=== PATIENT | female | born 1970 | race Asian ===

== ENCOUNTER 2017-08-04 20:16 | Emergency (ER) | payer SELFPAY ==
[2017-08-04 20:48] LABS: POC GLUCOSE 450 mg/dL (70-99)
[2017-08-04 21:08] LABS: ADD MAN DIFF? NO
[2017-08-04 21:11] LABS: BILIRUBIN,URINE NEGATIVE (NEG); CLARITY,URINE CLEAR; COLOR,URINE YELLOW; GLUCOSE,URINE >=1000 mg/dL (NEG); NITRITE,URINE NEGATIVE (NEG); PROTEIN,URINE 30 mg/dL (NEG-TRACE)
[2017-08-04 21:13] LABS: BASO % 0 % (0-3); EOS # 0.1 x10^3/uL (0.0-0.7); EOS % 1 % (0-3); HEMATOCRIT 40.6 % (36.0-47.0); HEMOGLOBIN 14.3 g/dL (12.0-15.5); LYMPH # 1.6 x10^3/uL (1.0-4.8); LYMPH % 19 % (24-48); MEAN CORPUSCULAR HEMOGLOBIN 33 pg (25-35); MEAN CORPUSCULAR HGB CONC 35 g/dL (31-37); MEAN CORPUSCULAR VOLUME 93 fL (79-100); MONO # 0.4 x10^3/uL (0.0-1.1); MONO % 5 % (0-9); NEUT # 6.2 x10^3uL (1.8-7.7); NEUT % 75 % (31-73); PLATELET COUNT 135 x10^3/uL (140-400); RED BLOOD COUNT 4.36 x10^6/uL (3.50-5.40); WHITE BLOOD COUNT 8.3 x10^3/uL (4.0-11.0)
[2017-08-04 21:28] LABS: ANION GAP 10 (6-14); BLOOD UREA NITROGEN 8 mg/dL (7-20); CALCIUM 8.7 mg/dL (8.5-10.1); CARBON DIOXIDE 25 mmol/L (21-32); CHLORIDE 93 mmol/L (98-107); CREATININE 0.9 mg/dL (0.6-1.0); POTASSIUM 3.6 mmol/L (3.5-5.1); SODIUM 128 mmol/L (136-145)
[2017-08-04 21:38] LABS: BACTERIA,URINE 0 /HPF (0-FEW); RBC,URINE 0 /HPF (0-2); SQUAMOUS EPITHELIAL CELL,UR MOD /LPF
[2017-08-04 21:40] LABS: GLUCOSE 511 mg/dL (70-99)
[2017-08-04] MEDS: metFORMIN 500 MG TABLET PO ×2 (22:32→22:44)
[2017-08-04] MEDS: NITROFURANTOIN MONOHYD/M-CRYST 100 MG CAPSULE. PO (22:44)
[2017-08-04] MEDS: INSULIN REGULAR 100 UNIT/ML 3ML VIAL. SQ (22:46)
== END 2017-08-04 22:52 | disposition home or self-care (01) ==
LOC: ER 20:16
DX: E11.65 Type 2 diabetes mellitus with hyperglycemia (principal)
CPT/HCPCS: 36415; 80048; 81001; 82962; 85025; 96372; 99284; J1815

== ENCOUNTER 2017-09-29 20:36 | Emergency (ER) | payer SELFPAY ==
[2017-09-29 23:46] LABS: POC GLUCOSE 439 mg/dL (70-99)
[2017-09-30] MEDS: INSULIN REGULAR 100 UNIT/ML 3ML VIAL. IV (00:05)
[2017-09-30] MEDS: IV NORMAL SALINE 1000ML BAG 1,000 ML IV ×2 (00:06→01:00)
[2017-09-30 01:45] LABS: POC GLUCOSE 278 mg/dL (70-99)
== END 2017-09-30 01:47 | disposition home or self-care (01) ==
LOC: ER 09-30 01:47
DX: E11.65 Type 2 diabetes mellitus with hyperglycemia (principal)
CPT/HCPCS: 82962; 96361; 96374; 99285; J1815; J7030

== ENCOUNTER → 2018-09-04 | Outpatient (CLI) | payer OTHER ==
[2017-09-29 23:00] VITALS: BP 110/80
[~2018-09-04] MED LIST: INSU100I17 SQ; INSU100V13 SQ; METF500T16 PO; NITR100C62 PO
--- NOTE | 2018-09-04 17:10 | KCIC ---
PA chest. HISTORY: Tuberculosis follow-up PA view was taken of the chest. There are bilateral diffuse mainly upper lobe infiltrates with definite interval change compared to the old study. An acute pneumonia is possible. TB can have this pattern. There is a probable cavitary lesion in the left apex. IMPRESSION: 1. Development of bilateral upper lobe infiltrates. 2. Cavitary lesion left apex, active TB is possible. Electronically signed by: Jarad Messina MD (09/04/2018 5:07 PM) [facility]
== END | disposition home or self-care (01) ==
LOC: KCIC 11:20
PROVIDERS: ATTEND Family Medicine
DX: Z09 Encounter for follow-up examination after completed treatment for conditions other than malignant neoplasm (principal); R91.8 Other nonspecific abnormal finding of lung field; R91.1 Solitary pulmonary nodule
CPT/HCPCS: 71045

== ENCOUNTER 2019-03-31 00:16 | Emergency (ER) | payer MEDICAID, OTHER ==
[2019-03-31 00:35] VITALS: BP 141/84
[2019-03-31] MEDS ORDERED: ACETAMINOPHEN 500 MG TABLET PO ONE (01:00)
[2019-03-31] MEDS ORDERED: IBUPROFEN 400 MG TABLET. PO ONE (01:00)
[2019-03-31] MEDS ORDERED: OSELTAMIVIR 75 MG CAPSULE PO ONE (01:00)
[2019-03-31] MEDS ORDERED: ONDANSETRON ODT 4 MG TAB.RAPDIS. PO ONE (01:00)
[2019-03-31 01:13] LABS: INFLUENZA A PATIENT NEGATIVE (NEGATIVE); INFLUENZA B PATIENT NEGATIVE (NEGATIVE)
[2019-03-31] MEDS ORDERED: OSEL75CA PO (01:13)
[2019-03-31] MEDS ORDERED: IBUP-1007 PO (01:13)
[2019-03-31] MEDS ORDERED: ACET325T9 PO (01:13)
--- NOTE | 2019-03-31 01:13 | PHYS DOC ---
Past Medical History Past Medical History: Diabetes-Type II Past Surgical History: No Surgical History Alcohol Use: None Drug Use: None Adult General Chief Complaint Chief Complaint: FLU SYMPTOM HPI HPI Patient is a 48 year old female who presents to the ED today with fever cough, nasal congestion, headache and generalized weakness since yesterday. Review of Systems Review of Systems Constitutional: Reports fevers, chills Eyes: Denies change in visual acuity, redness, or eye pain [] HENT: Denies nasal congestion or sore throat [] Respiratory: Reports cough, denies shortness of breath [] Cardiovascular: No additional information not addressed in HPI [] GI: Denies abdominal pain, nausea, vomiting, bloody stools or diarrhea [] : Denies dysuria or hematuria [] Musculoskeletal: Denies back pain or joint pain [] Integument: Denies rash or skin lesions [] Neurologic: Reports headache, denies focal weakness or sensory changes [] All other systems were reviewed and found to be within normal limits, except as documented in this note. Current Medications Current Medications Current Medications Medications (Trade) Dose Ordered Sig/Gonzalo Start Time Stop Time Status Last Admin Dose Admin Acetaminophen (Tylenol) 1,000 mg 1X ONCE 03/31/19 01:00 03/31/19 01:01 DC Ibuprofen (Motrin) 800 mg 1X ONCE 03/31/19 01:00 03/31/19 01:01 DC Ondansetron HCl (Zofran Odt) 4 mg 1X ONCE 03/31/19 01:00 03/31/19 01:01 DC Oseltamivir Phosphate (Tamiflu) 75 mg 1X ONCE 03/31/19 01:00 03/31/19 01:01 Cancel Allergies Allergies Allergies Coded Allergies Type Severity Reaction Last Updated Verified No Known Drug Allergies 05/20/15 No Physical Exam Physical Exam Constitutional: Well developed, well nourished, no acute distress, non-toxic appearance. [] HENT: Normocephalic, atraumatic, bilateral external ears normal, oropharynx moist, no oral exudates, nose normal. [] Eyes: PERRLA, EOMI, conjunctiva normal, no discharge. [] Neck: Normal range of motion, no tenderness, supple, no stridor. [] Cardiovascular:Heart rate regular rhythm, no murmur [] Lungs & Thorax: Bilateral breath sounds clear to auscultation [] Abdomen: Bowel sounds normal, soft, no tenderness, no masses, no pulsatile masses. [] Skin: Warm, dry, no erythema, no rash. [] Back: No tenderness, no CVA tenderness. [] Extremities: No tenderness, no cyanosis, no clubbing, ROM intact, no edema. [] Neurologic: Alert and oriented X 3, normal motor function, normal sensory function, no focal deficits noted. [] Psychologic: Affect normal, judgement normal, mood normal. [] Current Patient Data Vital Signs Vital Signs Date Time Temp Pulse Resp B/P (MAP) Pulse Ox O2 Delivery O2 Flow Rate FiO2 03/31/19 00:35 99.2 124 24 141/84 (103) 92 Room Air 99.2 EKG EKG [] Radiology/Procedures Radiology/Procedures [] Course & Med Decision Making Course & Med Decision Making Pertinent Labs and Imaging studies reviewed. (See chart for details) This is a 48-year-old female patient presenting to the ED today with flulike symptoms including headache, body aches, chills, fevers, weakness, symptoms beg an yesterday. Blood glucose in the ED is 289, history of diabetes type 2. Temperature 99.7. Patient was given Tylenol and Motrin on arrival to the ED. Discharged on Tamiflu. Instructed to rest and push fluids. Follow-up with primary care doctor in the course of this week. Dragon Disclaimer Dragon Disclaimer This electronic medical record was generated, in whole or in part, using a voice recognition dictation system. Departure Departure Impression: Primary Impression: Fever Additional Impressions: Cough URI (upper respiratory infection) Disposition: 01 HOME, SELF-CARE Condition: STABLE Referrals: SEGUNDO HARTLEY MD (PCP) follow up in the course of this week Patient Instructions: Cough, Adult, Fever, Adult, [id number], Upper Respiratory Infection, Adult, [id number] Additional Instructions: You were evaluated in the emergency room with symptoms suspicious of a viral illness likely Influenza. We put you on Tamiflu, take it as prescribed until completed. Please take Tylenol/Motrin for pain or fever. Push fluids, follow-up with your own doctor in the course of this week Scripts Acetaminophen (TYLENOL) 325 Mg Tablet 1-2 TAB PO QID, #60 TAB 2 Refills Prov: ELOINA SCHILLING APRN 03/31/19 Ibuprofen (IBUPROFEN) 600 Mg Tablet 600 MG PO PRN Q6HRS PRN for INFLAMMATION, #20 TAB Prov: CHRISTOPHERKATHIELOINA Singleton [employer] 03/31/19 Oseltamivir Phosphate (TAMIFLU) 75 Mg Capsule 1 CAP PO BID, #10 CAP Prov: ELOINA SCHILLING APRN 03/31/19 Problem Qualifiers Primary Impression: Fever Fever type: unspecified Qualified Codes: R50.9 - Fever, unspecified Additional Impressions: URI (upper respiratory infection) URI type: unspecified URI Qualified Codes: J06.9 - Acute upper respiratory infection, unspecified ELOINA SCHILLING APRN Mar 31, 2019 01:13
== END 2019-03-31 01:24 | disposition home or self-care (01) ==
LOC: ER 00:16
DX: J06.9 Acute upper respiratory infection, unspecified (principal); E11.9 Type 2 diabetes mellitus without complications
CPT/HCPCS: 82962; 87804; 99284; Q0162

== ENCOUNTER → 2019-04-15 | Outpatient (CLI) | payer OTHER ==
[2019-03-31 00:35] VITALS: BP 141/84
[~2019-04-15] MED LIST changes: +ACET325T9 PO; +IBUP-1007 PO; +OSEL75CA PO
--- NOTE | 2019-04-15 14:44 | KCIC ---
EXAM: CHEST ONE VIEW. HISTORY: Tuberculosis follow-up. COMPARISON: 09/04/2018. FINDINGS: A frontal view of the chest is obtained. Previously noted biapical infiltrates have improved but not completely resolved. There is residual scarlike opacity in the left greater than right apices. A fluid/fluid level in the left apex is no longer seen. The inspiration is small. There is no pneumothorax or pleural effusion. The heart is not enlarged. IMPRESSION: 1. Improvement in biapical dominant infiltrates. Mild scarring or infiltrate persists on the left greater than right. Electronically signed by: Avel Stevens MD (04/15/2019 2:40 PM) [facility]
== END | disposition home or self-care (01) ==
LOC: KCIC 12:20
PROVIDERS: ATTEND Family Medicine
DX: R91.8 Other nonspecific abnormal finding of lung field (principal); A15.9 Respiratory tuberculosis unspecified
CPT/HCPCS: 71046